=== PATIENT | female | born 2000 | race Hispanic/Latino ===

== ENCOUNTER 2022-12-07 14:26 | Emergency (ER) | payer OTHER ==
[~2022-12-07] VITALS: Ht 177.8 cm; Wt 128.4 kg
[2022-12-07 14:32] VITALS: O2SAT 98
[2022-12-07] MEDS ORDERED: ONDANSETRON HCL 4 MG ORAL DISINTEGRATING TAB ONE (15:03)
[2022-12-07] MEDS ORDERED: ONDANSETRON HCL 4 MG ORAL DISINTEGRATING TAB PO ONE (15:15)
== END 2022-12-07 15:35 | disposition home or self-care (01) ==
LOC: FSED 14:29
DX: O21.2 Late vomiting of pregnancy (principal); R10.30 Lower abdominal pain, unspecified; D64.9 Anemia, unspecified
CPT/HCPCS: 81003; 81025; 99283; Q0162